=== PATIENT | female | born 1965 | race Caucasian/White ===

== ENCOUNTER 2018-11-21 17:36 | Emergency (ER) | payer MEDICARE, MEDICAID ==
[~2018-11-21 17:36] MED LIST: DIPH25CA51 PO; DOCU-274 PO; ISON300T21 PO; OMEP-84 PO; PYRI50TA15 PO; SIMV20TA5 PO; TRAM50TA2 PO
== END 2018-11-21 19:07 | disposition home or self-care (01) ==
LOC: ER 17:36
DX: Z53.21 Procedure and treatment not carried out due to patient leaving prior to being seen by health care provider (principal)

== ENCOUNTER 2020-03-24 12:41 | Emergency (ER) | payer MEDICARE, MEDICAID ==
[~2020-03-24 12:41] MED LIST changes: +SIMV-42 PO; -SIMV20TA5 PO
--- NOTE | 2020-03-24 13:59 | NUR ---
Attempted to called patient at listed number, but no answer. Patient did not notify registration or nursing staff regarding leaving ED. Patient Left before triage.
== END 2020-03-24 14:02 | disposition left against medical advice (07) ==
LOC: ER 12:41
DX: Z04.3 Encounter for examination and observation following other accident (principal); Z53.21 Procedure and treatment not carried out due to patient leaving prior to being seen by health care provider

== ENCOUNTER 2021-09-08 05:31 | Day surgery (SDC) | payer MEDICARE, MEDICAID ==
[2021-09-05 11:01] LABS: BASOPHILS # (AUTO) 0.1 X10'3 (0-0.2); BASOPHILS % (AUTO) 0.8 % (0-1); EOSINOPHILS # (AUTO) 0.1 X10'3 (0-0.9); EOSINOPHILS % (AUTO) 2.1 % (0-6); LYMPHOCYTES # (AUTO) 1.7 X10'3 (1.1-4.8); LYMPHOCYTES % (AUTO) 25.6 % (21-51); MEAN CORPUSCULAR HEMOGLOBIN 29.8 PG (27.0-31.0); MEAN CORPUSCULAR HGB CONC 33.9 g/dL (33.0-36.5); MEAN CORPUSCULAR VOLUME 87.9 FL (78-98); MEAN PLATELET VOLUME 6.7 FL (7.4-10.4); MONOCYTES # (AUTO) 0.4 X10'3 (0-0.9); MONOCYTES % (AUTO) 6.6 % (2-12); NEUTROPHILS # (AUTO) 4.3 X10'3 (1.8-7.7); NEUTROPHILS % (AUTO) 64.9 % (42-75); PRE OP HEMATOCRIT 41.5 % (35.0-45.0); PRE OP HEMOGLOBIN 14.1 g/dL (12.0-16.0); PRE OP PLATELET COUNT 346 X10'3 (140-440); RED BLOOD COUNT 4.72 X10'6 (4.20-5.60); RED CELL DISTRIBUTION WIDTH 15.1 % (11.5-14.5)
[2021-09-05 11:11] LABS: ALBUMIN 3.5 G/DL (3.4-5.0); ALBUMIN/GLOBULIN RATIO 0.9 (1.1-1.5); ALKALINE PHOSPHATASE 117 IU/L (46-116); BLOOD UREA NITROGEN 13 MG/DL (7-18); BUN/CREATININE RATIO 15.3 (6.6-38.0); CALCIUM 8.9 MG/DL (8.5-10.1); CHLORIDE 107 MMOL/L (99-107); CREATININE 0.85 MG/DL (0.40-0.90); PRE OP ALT 34 U/L (30-65); PRE OP ANION GAP 10 (8-16); PRE OP AST 21 U/L (10-37); PRE OP BILIRUB, TOTAL 0.3 MG/DL (0.0-1.0); PRE OP GLUCOSE 132 MG/DL (70-104); PRE OP POTASSIUM 3.8 MMOL/L (3.4-5.1); PRE OP SODIUM 143 MMOL/L (135-145); TOTAL CARBON DIOXIDE 26.1 MMOL/L (24-32); TOTAL PROTEIN 7.2 G/DL (6.4-8.2); eGFR 69 ML/MIN
[2021-09-08] VITALS (21 sets, daily range): BP systolic 85–153; BP diastolic 43–94
[~2021-09-08] VITALS: Ht 167.6 cm; Wt 116.7 kg
[~2021-09-08 05:31] MED LIST changes: +ATOR40TA72 PO; -DOCU-274 PO; +HYDR-3973 PO; -ISON300T21 PO; -PYRI50TA15 PO; -SIMV-42 PO; +SUMA100T16 PO; -TRAM50TA2 PO; +VANCOMYCIN 1,500MG inj. 1,500 MG in normal saline 500ml IV soln 500 ML IV ONE; +VENL150C58 PO; +albuterol 2.5 MG/3 ML nebule NEB ONE; +cefazolin/dext.iso 2gm/50ml 50 ML IV ONE; +famotidine 20mg tablet PO ONE; +ringers solution, lacted 1,000 ML IV SCH
[2021-09-08] MEDS ORDERED: BUPIVAcaine/PF 2.5 mg/ml (0.25%) 30ml vial ONE (06:57)
[2021-09-08] MEDS ORDERED: triamcinolone acetonide 40mg/ml inj ONE (06:57)
[2021-09-08] MEDS ORDERED: ondansetron/PF 4mg/2ml inj IV PRN (07:15)
[2021-09-08] MEDS ORDERED: ringers solution, lacted 1,000 ML IV SCH (07:15)
[2021-09-08] MEDS ORDERED: fentaNYL/PF 50MCG/1 ML 2ML syringe ONE (07:15)
[2021-09-08] MEDS ORDERED: labetalol 20mg/4ml (5mg/ml) syringe IV PRN (07:15)
[2021-09-08] MEDS ORDERED: hydrALAZINE 20mg/ml inj. IV PRN (07:15)
[2021-09-08] MEDS ORDERED: morphine 4 MG/ML inj SYRINge IV PRN (07:15)
[2021-09-08] MEDS ORDERED: morphine 2 MG/ML inj. syringe IV PRN (07:15)
[2021-09-08] MEDS ORDERED: MIDAZolam 1mg/ml 10ml vial ONE (07:15)
[2021-09-08] MEDS ORDERED: fentaNYL/PF 50MCG/1 ML 2ML syringe IV PRN ×2 (07:15)
[2021-09-08] MEDS ORDERED: diphenhydrAMINE 50 mg/ml inj ONE (07:50)
[2021-09-08] MEDS ORDERED: MIDAZolam 1 MG/ML 5ML VIAL ONE (08:17)
--- NOTE | 2021-09-08 08:40 | NUR ---
Received from OR via [facility], accompanied by Anesthesiologist VÍCTOR and report given by Anesthesiolgist. PATIENT WITH CRISTHIAN/BIAS WRAP TO LEFT KNEE. + DP PRESENT. PATIENT WTIH 20G PIV IN RIGHT HAND RUNNING LR AT 100. DENIES PAIN. SPINAL ANESTHESIA WITH T 8 SENSATION LEVEL. PATIENT WITH FREQUENT UNPRODUCTIVE COUGH. Addendum: 09/08/21 at 0858 by Del Ruiz RN, RN Amended: Links added.
--- NOTE | 2021-09-08 11:50 | NUR ---
CARE TURNED OVER TO NISA GUTIERREZ RN- REPORT GIVEN. ALL QUESTIONS ANSWERED. VSS Addendum: 09/08/21 at 1153 by Del Ruiz RN, RN Amended: Links added.
--- NOTE | 2021-09-08 12:50 | NUR ---
PT AWAKE AND ALERT, SENSATION RETURNED ABLE TO WALK UNASSISTED, UP GETTING DRESSED, +PULSES BLE, DRSG TO LEFT KNEE -CDI, VSS, DENIES PAIN, PIV D/CD-CANULA INTACT, GIVEN D/C INSTRUCTIONS-ALL QUESTIONS ANSWERED, TAKEN VIA W/C TO VEHICLE TO BE TAKEN HOME BY DTR.
== END 2021-09-08 12:50 | disposition home or self-care (01) ==
LOC: PAS 05:31
PROVIDERS: ATTEND Orthopaedic Surgery
DX: S83.232A Complex tear of medial meniscus, current injury, left knee, initial encounter (principal); S83.272A Complex tear of lateral meniscus, current injury, left knee, initial encounter; M94.262 Chondromalacia, left knee; M17.12 Unilateral primary osteoarthritis, left knee; F41.9 Anxiety disorder, unspecified; G89.4 Chronic pain syndrome; F32.9 Major depressive disorder, single episode, unspecified; E78.5 Hyperlipidemia, unspecified; K21.9 Gastro-esophageal reflux disease without esophagitis; G43.909 Migraine, unspecified, not intractable, without status migrainosus; E66.01 Morbid (severe) obesity due to excess calories; Z68.41 Body mass index [BMI] 40.0-44.9, adult; Z20.822 Contact with and (suspected) exposure to COVID-19; Z88.8 Allergy status to other drugs, medicaments and biological substances; Z88.5 Allergy status to narcotic agent; Z79.899 Other long term (current) drug therapy; F17.210 Nicotine dependence, cigarettes, uncomplicated; Z98.890 Other specified postprocedural states; Z72.89 Other problems related to lifestyle; X58.XXXA Exposure to other specified factors, initial encounter; Y93.89 Activity, other specified; Y92.89 Other specified places as the place of occurrence of the external cause; Y99.8 Other external cause status
CPT/HCPCS: 29873; 29879; 29880; 36415; 80053; 82948; 85025; 93005; J1200; J2250; J3010; J3301; J3370; J3490; J7040; U0003; U0005; Z7506; Z7508; Z7512; A4215; A4618; A6250; A6449; A7000; J7120